=== PATIENT | female | born 1970 | race Caucasian/White ===

== ENCOUNTER → 2018-07-07 | Outpatient (CLI) | payer BC ==
--- NOTE | 2018-07-07 14:08 | DIAGNOSTIC IMAGING REPORT ---
RIGHT KNEE 4 VIEWS INCLUDING BILATERAL STANDING AP VIEWS CLINICAL HISTORY: RIGHT KNEE PAIN COMPARISON: None. DISCUSSION: There is mild narrowing involving the medial joint compartment of both knees. On the right, there are no acute fractures. There are no erosive or destructive changes. There is an equivocal small joint effusion. IMPRESSION: 1. No fractures identified 2. Minor degenerative changes 3. Equivocal small joint effusion Electronically signed by: Janak Almaguer M.D. 07/07/2018 2:07 PM Dictated Date/Time: 07/07/2018 2:06 PM
== END | disposition home or self-care (01) ==
LOC: C.RDSM 13:49
PROVIDERS: ATTEND Physician Assistant
DX: M25.561 Pain in right knee (principal)